=== PATIENT | male | born 1970 | race Caucasian/White ===

== ENCOUNTER 2021-02-01 12:28 | Emergency (ER) | payer OTHER ==
[2021-02-01] MEDS ORDERED: Sodium Chloride 0.9% 10 ML Syringe FLUSH PRN (12:39)
--- NOTE | 2021-02-01 12:39 | EDM.PDOC ---
ED HPI GENERAL MEDICAL PROBLEM - General Chief Complaint: Abdominal Pain Stated Complaint: SEVERE ABDOMINAL PAIN Time Seen by Provider: 02/01/21 12:39 Source of Information: Reports: Patient, RN, RN Notes Reviewed History Limitations: Reports: No Limitations - History of Present Illness INITIAL COMMENTS - FREE TEXT/NARRATIVE: Pt presents to ER from home with c/o onset last evening of right flank pain and RLQ abdominal pain. This afternoon the pain became severe, and he began vomiting. He feels the urge to urinate but doesn't go. Denies fever, chills, or diarrhea. No Hx of kidney stones. Onset: Sudden Onset Date: 01/31/21 Duration: Getting Worse, Intermittent, Recurring, Waxing/Waning Location: Reports: Abdomen, Radiates to (Right groin), Other (Right flank) Quality: Reports: Ache Severity: Severe Improves with: Reports: None Worsens with: Reports: None Associated Symptoms: Reports: No Other Symptoms Past Medical History - Past Health History Medical/Surgical History: Denies Medical/Surgical History Social & Family History - Family History Family Medical History: No Pertinent Family History - Living Situation & Occupation Living situation: Reports: Occupation: Employed ED ROS GENERAL - Review of Systems Review Of Systems: Comprehensive ROS is negative, except as noted in HPI. ED EXAM, GI/ABD - Physical Exam Exam: See Below Exam Limited By: No Limitations General Appearance: Alert, WD/WN, Moderate Distress (due to pain). No: Active Emesis Eyes: Bilateral: Normal Appearance Throat/Mouth: Normal Lips, Normal Voice, No Airway Compromise Head: Atraumatic, Normocephalic Neck: Normal Inspection Respiratory/Chest: No Respiratory Distress, Lungs Clear, Normal Breath Sounds, No Accessory Muscle Use, Chest Non-Tender Cardiovascular: Normal Peripheral Pulses, Regular Rate, Rhythm, No Edema, No Gallop, No JVD, No Murmur, No Rub GI/Abdominal Exam: Normal Bowel Sounds, Soft, Non-Tender, No Organomegaly, No Distention, No Abnormal Bruit, No Mass, Pelvis Stable (Male) Exam: Deferred Back Exam: CVA Tenderness (R). No: CVA Tenderness (L), Vertebral Tenderness Extremities: Normal Inspection Neurological: Alert, Oriented, No Motor/Sensory Deficits Psychiatric: Anxious Skin Exam: Warm, Dry, Intact, Normal Color, No Rash Course - Vital Signs Last Recorded V/S: Last Vital Signs Temp Pulse 66 02/01/21 13:48 Resp 16 02/01/21 13:48 BP 118/68 02/01/21 13:48 Pulse Ox 96 02/01/21 13:48 - Orders/Labs/Meds Orders: Active Orders 24 hr Category Date Time Status Peripheral IV Care [RC] . DIRECTED Care 02/01/21 12:39 Active Sodium Chloride 0.9% [Saline Flush] Med 02/01/21 12:39 Active 10 ml FLUSH ASDIRECTED PRN Peripheral IV Insertion Adult [OM.PC] Stat Oth 02/01/21 12:39 Ordered Labs: Laboratory Tests 02/01/21 02/01/21 02/01/21 Range/Units 12:41 12:41 12:54 WBC 15.0 H (5.0-10.0) 10^3/uL RBC 4.55 L (4.6-6.2) 10^6/uL Hgb 13.9 L (14.0-18.0) g/dL Hct 40.2 (40.0-54.0) % MCV 88.4 (80-100) fL MCH 30.5 (27.0-34.0) pg MCHC 34.6 (33.0-35.0) g/dL Plt Count 172 (150-450) 10^3/uL Neut % (Auto) 81.5 H (42.2-75.2) % Lymph % (Auto) 12.4 L (20.5-50.1) % Page % (Auto) 5.7 (2-8) % Eos % (Auto) 0.3 L (1.0-3.0) % Baso % (Auto) 0.1 (0.0-1.0) % Sodium 142 (136-145) mmol/L Potassium 4.1 (3.5-5.1) mmol/L Chloride 105 (98-107) mmol/L Carbon Dioxide 24 (21-32) mmol/L Anion Gap 17.1 H (7-13) mEq/L BUN 25 H (7-18) mg/dL Creatinine 1.23 (0.70-1.30) mg/dL Est Cr Clr Drug Dosing TNP Estimated GFR (MDRD) > 60 BUN/Creatinine Ratio 20.3 (No establ ref range) Glucose 111 H (74-99) mg/dL Calcium 8.8 (8.5-10.1) mg/dL Total Bilirubin 0.5 (0.2-1.0) mg/dL AST 14 L (15-37) U/L ALT 25 (16-63) U/L Alkaline Phosphatase 73 (46-116) U/L Total Protein 6.9 (6.4-8.2) g/dL Albumin 3.9 (3.4-5.0) g/dL Globulin 3.0 Albumin/Globulin Ratio 1.3 Urine Color Yellow (YELLOW) Urine Appearance Clear (CLEAR) Urine pH 6.0 (5.0-9.0) Ur Specific [place] >= 1.030 (1.005-1.030) Urine Protein 100 H (NEGATIVE) Urine Glucose (UA) Negative (NEGATIVE) Urine Ketones Trace H (NEGATIVE) Urine Occult Blood Large H (NEGATIVE) Urine Nitrite Negative (NEGATIVE) Urine Bilirubin Negative (NEGATIVE) Urine Urobilinogen 0.2 (0.2-1.0) mg/dL Ur Leukocyte Esterase Negative (NEGATIVE) Urine RBC 30-40 H /HPF Urine WBC 0-5 (0-5/HPF) /HPF Ur Epithelial Cells Rare (NOT SEEN) /HPF Amorphous Sediment Rare (NOT SEEN) /HPF Urine Bacteria Rare (0-FEW/HPF) /HPF Urine Mucus Rare (NOT SEEN) /LPF - Radiology Interpretation Free Text/Narrative:: CT Abd/Pelvis: small partially obstructing right ureter stone(s) per Rad. report. Departure - Departure Time of Disposition: 14:28 Disposition: Home, Self-Care 01 Condition: Good Clinical Impression: Kidney stone on right side - Discharge Information *PRESCRIPTION DRUG MONITORING PROGRAM REVIEWED*: No *COPY OF PRESCRIPTION DRUG MONITORING REPORT IN PATIENT ALHAJI: No Instructions: Kidney Stones, Renal Colic Forms: ED Department Discharge Additional Instructions: Rx: Percocet 5mg/325mg Rx: Zofran 4mg Rx: Flomax 0.4mg Drink plenty of water. Follow up in clinic with your primary doctor in the next 1 week for recheck and referral to urology if the stone hasn't passed by that time. Return to the ER if you develop a fever, or if your pain is uncontrolled. Sepsis Event Note (ED) - Focused Exam Vital Signs: Vital Signs Pulse Resp BP Pulse Ox 02/01/21 13:48 66 16 118/68 96 - My Orders Last 24 Hours: My Active Orders 02/01/21 12:39 Peripheral IV Care [RC] . DIRECTED Sodium Chloride 0.9% [Saline Flush] 10 ml FLUSH ASDIRECTED PRN Peripheral IV Insertion Adult [OM.PC] Stat - Assessment/Plan Last 24 Hours: My Active Orders 02/01/21 12:39 Peripheral IV Care [RC] . DIRECTED Sodium Chloride 0.9% [Saline Flush] 10 ml FLUSH ASDIRECTED PRN Peripheral IV Insertion Adult [OM.PC] Stat
[2021-02-01] MEDS ORDERED: HYDROmorphone 1 MG/ML Syringe IVPUSH ONE ×2 (12:40→13:03)
[2021-02-01] MEDS ORDERED: Ondansetron 4 MG/2 ML SDV IV ONE (12:40)
[2021-02-01] MEDS ORDERED: Sodium Chloride 0.9% 1,000 ML IV ONE (12:40)
[2021-02-01] MEDS ORDERED: Ketorolac 30 MG/ML SDV IVPUSH ONE (12:40)
[2021-02-01 13:12] LABS: ANION GAP 17.1 mEq/L (7-13); CHLORIDE,CL 105 mmol/L (98-107); SODIUM,NA 142 mmol/L (136-145)
--- NOTE | 2021-02-01 13:43 | CT ---
EXAMINATION: Abdomen Pelvis wo Cont SEX: Male AGE: 50 years CLINICAL HISTORY: 50-year-old male with right flank and lower abdominal pain that radiates to the groin. Rule out urolithiasis. Scan technique: Volume acquisition of data emergency unenhanced CT exam abdomen and pelvis (kidneys/ureters/bladder) obtained with the patient lying supine on the Siemens multislice scanner [place], [place]. All data archived in the PACS system for storage, reformatting axial/sagittal/coronal planes and study. Interpretation: Abnormal. 1. Asymmetrically larger edematous appearing right kidney with subtle ipsilateral pyelocaliectasis. Solitary tiny 15 mm diameter exophytic cyst extending off the lower pole of the right kidney. No nephrolithiasis. 2. *Solitary 1-2 mm diameter calculus "lodged" ureterovesical juncture, right pelvis (several tiny punctate phleboliths). 3. Increased density renal pyramids on the left suggesting dehydration. No left renal mass, stone or obstruction. 4. Gallbladder, unenhanced liver, stomach (small hiatus hernia), spleen, pancreas and adrenal glands unremarkable. 5. Atheromatous calcifications normal caliber aortoiliac vessels. Lumbar spine unremarkable. Lung bases clear. 6. No abdominal or pelvic mass lesion. No inflammatory "dirty" peritoneal fat. No ventral wall hernia, mechanical bowel obstruction, ascites or free intraperitoneal air. CONCLUSION: Partially obstructing distal right ureterolith (stone).
== END 2021-02-01 14:52 | disposition home or self-care (01) ==
LOC: DL.ED 12:28
DX: N20.2 Calculus of kidney with calculus of ureter (principal)
CPT/HCPCS: 36415; 74176; 80053; 81001; 85025; 96374; 96375; 99284; J1170; J1885; J2405; J7030